=== PATIENT | male | born 1985 | race Caucasian/White ===

== ENCOUNTER → 2022-06-03 | Outpatient (CLI) | payer BC | END | disposition home or self-care (01) | LOC: RAH 09:17 | PROVIDERS: ATTEND Clinical Nurse Specialist Family Health | DX: M54.50 Low back pain, unspecified (principal) | CPT/HCPCS: 72070; 72100 ==

== ENCOUNTER → 2022-10-10 | Outpatient (CLI) | payer BC | END | disposition home or self-care (01) | LOC: RAH 09:01 | PROVIDERS: ATTEND Clinical Nurse Specialist Family Health | DX: M16.12 Unilateral primary osteoarthritis, left hip (principal); M25.552 Pain in left hip | CPT/HCPCS: 73502 ==